=== PATIENT | male | born 1990 | race Caucasian/White ===

== ENCOUNTER 2019-03-04 21:23 | Emergency (ER) | payer OTHER, SELFPAY ==
[2019-03-04 21:25] VITALS: BP 165/81; PULSE 97; RESP 16; TEMP 36.7; O2SAT 100; BMI 31.6
--- NOTE | 2019-03-04 21:59 | ED.VIS.PSYCH ---
History of Present Illness Chief Complaint: Mental Health Informant: Patient, Family Onset: Month(s) - 6 months Context: Gradual Onset Conflict: Family, Work Timing: Continuous Current Severity: Mild Maximum Severity: Moderate Worsened by: Situational factors Relieved by: Nothing Associated Symptoms: Depressed, Change in Eating, Change in sleeping, Guilt, Decreased Concentration. Negative for: Hopelessness, Suicidal Thoughts, Easily distracted, Grandiosity, Flight of Ideas, Increased activity, Pressured Speech, Agitated, Angry, Hostile, Threatening, Confusion, Paranoia, Auditory Hallucinations Specific plan (suicidal thought): Not applicable Narrative: Patient is a 28-year-old male brought to the emergency department by his father. He has been for 4 years. His is expecting. She is 33 weeks. Apparently they have been having problems over the past 6 months. There is a co-worker that has been talking with him. is aware. This has led to a strain in their relationship. He admits to drinking this evening. He has superficial cuts to the volar surface of the left forearm. He has no psychiatric disorder. He has never attempted to harm himself. He is employed as a teacher. He does admit to smoking. Patient does have an appointment to see counselor on Thursday. He was in marriage counseling. Marriage counselor recommended separate counseling at the present time. Apparently they had lived in separate residence for the past week. He will stay with his mother and father this evening. Prior similar symptoms: No Recent Illness/Hospitalization: No - Past Medical History (1) No significant past medical history Status: Acute Past Medical History - Allergies and Home Meds Allergies/Adverse Reactions: Allergies No Known Allergies Allergy (Verified 03/04/19 21:29) Primary Care Physician: Care Physician,No Primary [Primary Care Provider] - Prior records reviewed: No Past Medical History: None Surgical History: no surgical history Lives: Spouse/ Significant Other, With Family Smoking Status: Never smoker Review of Systems General: Denies: Chills, Fever, Sweats Eyes: Denies: Visual changes - bilaterally, Blurred Vision - bilaterally, Diplopia ENT: Denies: Rhinorrhea, Sore throat Cardiovascular: Denies: Chest pain, Palpitations Respiratory: Denies: Dyspnea, Cough, Dyspnea on exertion Gastrointestinal: Denies: Abdominal pain, Nausea, Vomiting, Diarrhea, Melena, Hematochezia Genitourinary: Denies: Dysuria, Hematuria, Frequency Musculoskeletal: Denies: Back pain, Extremity Pain Skin: Denies: Rash, Wounds Neurological: Denies: Headache, Weakness, Numbness Psych: Reports: Depression, Anxiety. Denies: Suicidal thoughts, Suicidal ideations, -, - Hematologic: Denies: Easy bruising, Easy bleeding Physical Exam Vital Signs/Narrative: Vital Signs Temp Pulse Resp BP Pulse Ox 03/04/19 21:25 98.1 F 97 16 165/81 H 100 Inital Vital Signs reviewed: Yes General: Well nourished, Well developed Head: Normocephalic, Atraumatic Eyes: Perrl, EOMI. Negative for: Pale conjunctiva, Scleral icterus ENT: Moist mucous membranes, No rhinorrhea Neck: Supple, Nontender, No lymphadenopathy, No JVD Cardiovascular: Regular rate, Regular rhythm, No murmurs, Normal S1, Normal S2 Respiratory: No distress, CTA bilaterally, Chest nontender Abdomen: Soft, Nontender, Nondistended, Normal bowel sounds Back: Nontender, Normal Inspection Extremities: Nontender, No Edema, - - Superficial linear lacerations.. Negative for: Healed prior injuries Skin: Normal color, No rash Neurological: Alert, Oriented x3, Cranial nerves II-XII grossly intact, Normal Strength, Normal Sensation, Normal Gait Psych: Logical sequential goal directed thoughts, No suicidal or homicidal ideation, Normal Appearance, Depressed. Negative for: Normal Stable Appropriate Affect, Irritable, Euphoric, Labile, Blunted Affect, Flat Affect, Restricted Affect, Pressured Speech, Poverty of Speech, Flight of Ideas, Incoherent thoughts, Suicidal thoughts, Homicidal thoughts, Hallucinations, Delusions, Paranoid Ideation, Poor Insight, Poor Judgement Diagnostic/Tx/Re-eval Restraints applied: No Patient presents with depression in the past 6 years. He was in marriage counseling. He is now undergoing individual counseling. Patient is modified sad person score is 5. Patient is candidate for outpatient therapy. He was administered Zoloft in the emergency department and prescription for Zoloft. He states he cut himself because he felt numb and wanted to feel. ED Disposition - Plan for ED Patient: Disposition: Home or Assisted Living Diagnosis: Depression (emotion), Abrasion, forearm w/o infection Instructions: ED Depression, ED Laceration Small Superf No Sutr Prescriptions: Sertraline HCl [Zoloft] 25 mg PO QHS #30 tab Referrals: Care Physician,No Primary [Primary Care Provider] -
[2019-03-04] MEDS: Sertraline 50 MG Tablet 25 MG PO (22:20)
== END 2019-03-04 22:30 | disposition home or self-care (01) ==
LOC: ED 22:30
PROVIDERS: Emergency Provider Emergency Medicine
DX: F32.9 Major depressive disorder, single episode, unspecified (principal); S50.812A Abrasion of left forearm, initial encounter; W45.8XXA Other foreign body or object entering through skin, initial encounter; Y93.89 Activity, other specified; Y92.89 Other specified places as the place of occurrence of the external cause; Y99.8 Other external cause status
CPT/HCPCS: 99283

== ENCOUNTER → 2020-01-04 | Outpatient (CLI) | payer OTHER, SELFPAY ==
[2020-01-04 09:18] VITALS: BMI 32.9
[2020-01-04 11:59] LABS: Bacteria 0 SEEN /hpf (None Seen); Mucous, Urine 0 SEEN /hpf (<or=2+); Red Blood Cells-Urine 0 SEEN /hpf (0-5); Squamous Epithelial Cells - UA 0 SEEN /hpf (0-5); White Blood Cells 0 SEEN /hpf (0-5)
[2020-01-04 12:02] LABS: Color, Urine Yellow (Yellow); Glucose, Dipstick Normal (Normal); Ketone-Dipstick Negative (Negative); Leukocyte Esterase-Dipstick Negative /ul (Negative); Nitrite-Dipstick Negative (Negative); Occult Blood-Urine Negative /ul (Negative); Protein-Dipstick Negative (Negative); Specific Gravity, Urine 1.005 (1.002-1.030); Urine Bilirubin Dipstick Negative (Negative); Urine Clarity Clear (Clear); Urine Urobilinogen Normal (Normal)
[2020-01-04 12:04] LABS: Hematocrit 47.1 % (40-54); Hemoglobin 15.9 g/dL (13.0-16.5); Mean Corp Hgb Conc 33.8 g/dL (32-36); Mean Corpuscular Volume 85.9 fL (80-94); Mean Platelet Vol. 10.1 fl (6.2-12.0); Platelet Count 217 K/mm3 (150-450); RBC Distribution Width CV 12.6 % (11.6-14.6); RBC Distribution Width SD 39.1 fl (35.1-43.9); Red Blood Count 5.48 M/mm3 (4.6-6.2); White Blood Count 5.8 K/mm3 (4.4-11.0)
[2020-01-04 12:25] LABS: Hemoglobin A1c 5.6 % (4.2-6.3)
[2020-01-04 12:28] LABS: ALB/GLOB Ratio 1.2 RATIO (0.9-2.4); AST(SGOT) 39 U/L (15-37); Alanine Aminotransfer ALT/SGPT 115 U/L (16-61); Alkaline Phosphatase 59 U/L (45-117); Anion Gap 5 (5-15); BUN 23 mg/dL (7-18); BUN/Creat Ratio 16.5 RATIO (10-20); Calcium,Total 8.8 mg/dL (8.5-10.1); Chloride 103 mmol/L (98-107); Cholesterol 187 mg/dL (200); Creatinine, Serum 1.39 mg/dL (0.70-1.30); EST Glomerular Filtration Rate 64 mL/min (>60); Est Glom Filt Rate - Afr Amer 78 mL/min (>60); Globulin 3.3 g/dL (2.2-4.2); Glucose 103 mg/dL (74-106); High Density Lipoprotein 29 mg/dL; PSA,Total - Annual Screen 0.69 ng/mL (0.00-4.00); Protein, Total 7.3 g/dL (6.4-8.2); Sodium Level 138 mmol/L (136-145); Thyroid Stim Hormone (TSH) 1.87 uIU/mL (0.358-3.74); Triglycerides 71 mg/dL; Very Low Density Lipoprotein 14 mg/dL (5-40)
== END | disposition home or self-care (01) ==
PROVIDERS: PCP Internal Medicine; Referring Provider Nurse Practitioner Family; Visit Provider Nurse Practitioner Family
DX: Z00.00 Encounter for general adult medical examination without abnormal findings (principal); Z12.5 Encounter for screening for malignant neoplasm of prostate
CPT/HCPCS: 36415; 80053; 80061; 81001; 83036; 84153; 84443; 85027; G0103

== ENCOUNTER 2020-03-28 17:40 | Emergency (ER) | payer OTHER, SELFPAY ==
[2020-01-04 13:36] VITALS: BMI 31.6
[2020-03-28 17:41] VITALS: BP 118/74; PULSE 112; RESP 18; TEMP 37; O2SAT 95; BMI 31.1
--- NOTE | 2020-03-28 17:56 | CT_ITS ---
STUDY: CT ABDOMEN AND PELVIS WITH CONTRAST REASON FOR EXAM: Male, 29 years old. FEVER/NAUSEA/RLQ AND UMBILICAL PAIN. DIARRHEA RADIATION DOSAGE (If Supplied By Facility): CTDIvol = ( 13.46 ) mGy, DLP = ( 1131.97 ) mGycm TECHNIQUE: Transaxial images were obtained from the dome of the diaphragm to the symphysis pubis with oral contrast. Oral and amp; IV Gastrografin and amp; 75mL Isovue-370 was administered. Sagittal and coronal images were reconstructed. Individualized dose optimization techniques were used for this CT. COMPARISON: None. FINDINGS: Moderate thickening of the mucosa of the wall of the entire ascending and transverse colon as well as entire descending colon and proximal sigmoid colon compatible with diffuse colitis. There is also mild to moderate thickening of the wall of the ileocolic junction. Right lower quadrant subcentimeter lymphadenopathy is present. The appendix is normal in caliber and without abnormal distention or periappendiceal inflammation to suggest acute appendicitis. The small bowel is normal. The stomach is normal. No small bowel obstruction. No free air or free fluid. The visualized lung bases are unremarkable. The visualized portions of the heart are within normal limits. Normal liver. Normal gallbladder and extrahepatic biliary system. Normal spleen. Normal pancreas. Normal bilateral adrenal glands. Normal right kidney. Normal left kidney. Normal abdominal aorta. Normal inferior vena cava. Normal retroperitoneum. Normal urinary bladder. Normal abdominal wall. There are diffuse degenerative changes of the visualized lumbar spine. CT/Abdomen/Pelvis WITH Contrast IMPRESSION: 1. Moderate thickening of the mucosa of the wall of the entire ascending and transverse colon as well as entire descending colon and proximal sigmoid colon compatible with diffuse colitis. There is also mild to moderate thickening of the wall of the ileocolic junction. Right lower quadrant subcentimeter lymphadenopathy is present. 2. Findings can be seen with inflammatory bowel disease. 3. The appendix is normal in caliber and without abnormal distention or periappendiceal inflammation to suggest acute appendicitis. Electronically Signed: Jamey Nance MD at 20:01 EDT , Service support ,
--- NOTE | 2020-03-28 17:57 | ED.DCSUM_ITS ---
History of Present Illness Chief Complaint: Abd Pain Informant: Patient Onset: Yesterday Current Severity: Mild Maximum Severity: Moderate Narrative: Presents with fever, mild cough, abdominal pain, diarrhea. Symptoms started yesterday. Temperature has been up to 102. Last dose of Tylenol was 2 hours prior to arrival. He does report mild cough but no shortness of breath. He has abdominal cramping and diarrhea. He states yesterday he had periumbilical pain it is now moved down to the right lower quadrant. He denies any known exposures to Covid patients. He has not had an appetite and has not eaten today. - Past Medical History (1) Depression Status: Chronic Past Medical History - Allergies and Home Meds Allergies/Adverse Reactions: Allergies No Known Allergies Allergy (Verified 03/28/20 17:44) Primary Care Physician: Gay Irving MD [Primary Care Provider] - Surgical History: no surgical history Lives: Spouse/ Significant Other Smoking Status: Never smoker Review of Systems General: Reports: Fever Eyes: Denies: Visual changes - bilaterally ENT: Denies: Bilateral ear pain Cardiovascular: Denies: Chest pain Respiratory: Reports: Cough. Denies: Dyspnea, Sputum Gastrointestinal: Reports: Abdominal pain, Diarrhea. Denies: Vomiting Genitourinary: Denies: Dysuria Musculoskeletal: Denies: Extremity Pain Skin: Denies: Rash Neurological: Denies: Headache Hematologic: Denies: Easy bruising, Easy bleeding Allergy: Denies: Uticaria Physical Exam Vital Signs/Narrative: Vital Signs Temp Pulse Resp BP Pulse Ox 03/28/20 17:41 98.6 F 112 H 18 118/74 95 Inital Vital Signs reviewed: Yes General: Well nourished, Well developed Head: Normocephalic ENT: Moist mucous membranes Neck: Supple Cardiovascular: Regular rate, Regular rhythm Respiratory: No distress, CTA bilaterally Abdomen: Soft, Tender - Mild to moderate right lower quadrant tenderness., Hypoactive bowel sounds. Negative for: Guarding, Rebound tenderness Skin: Normal color Neurological: Alert, Oriented x3 Psychological: Normal affect Diagnostic/Tx/Re-eval Impressions Abdomen/Pelvis CT 03/28/20 17:56 IMPRESSION: 1. Moderate thickening of the mucosa of the wall of the entire ascending and transverse colon as well as entire descending colon and proximal sigmoid colon compatible with diffuse colitis. There is also mild to moderate thickening of the wall of the ileocolic junction. Right lower quadrant subcentimeter lymphadenopathy is present. 2. Findings can be seen with inflammatory bowel disease. 3. The appendix is normal in caliber and without abnormal distention or periappendiceal inflammation to suggest acute appendicitis. Electronically Signed: Jamey Nance MD at 20:01 EDT , Service support , 03/28/20 17:56 Abdomen/Pelvis WITH Contrast [CT] Stat Laboratory Results 03/28/20 03/28/20 03/28/20 18:03 18:10 18:10 WBC 8.1 RBC 5.40 Hgb 15.8 Hct 50.0 MCV 92.6 MCH 29.3 MCHC 31.6 L RDW Std Deviation 49.1 H RDW Coeff of Aparna 14.3 Plt Count 208 MPV 9.7 Immature Gran % (Auto) 0.200 Neut % (Auto) 84.0 H Lymph % (Auto) 7.7 L [place] % (Auto) 7.9 Eos % (Auto) 0.0 Baso % (Auto) 0.2 Absolute Neuts (auto) 6.8 Absolute Lymphs (auto) 0.62 L Nucleated RBC % 0 Sodium 139 Potassium 3.9 Chloride 105 Carbon Dioxide 29.0 Anion Gap 5 BUN 11 Creatinine 1.56 H Estim Creat Clear Calc 77.38 Est GFR (MDRD) Af Amer 68 Est GFR (MDRD) Non-Af 56 L BUN/Creatinine Ratio 7.1 L Glucose 90 Calcium 9.1 Urine Color Urine Clarity Urine pH Ur Specific [place] Urine Protein Urine Glucose (UA) Urine Ketones Urine Occult Blood Urine Nitrite Urine Bilirubin Urine Urobilinogen Ur Leukocyte Esterase Urine RBC Urine WBC Ur Squamous Epith Cells Urine Bacteria Urine Mucus COVID-19 (TR) Negative 03/28/20 19:40 WBC RBC Hgb Hct MCV MCH MCHC RDW Std Deviation RDW Coeff of Aparna Plt Count MPV Immature Gran % (Auto) Neut % (Auto) Lymph % (Auto) [place] % (Auto) Eos % (Auto) Baso % (Auto) Absolute Neuts (auto) Absolute Lymphs (auto) Nucleated RBC % Sodium Potassium Chloride Carbon Dioxide Anion Gap BUN Creatinine Estim Creat Clear Calc Est GFR (MDRD) Af Amer Est GFR (MDRD) Non-Af BUN/Creatinine Ratio Glucose Calcium Urine Color Jayde Urine Clarity Clear Urine pH 6.0 Ur Specific [place] 1.015 Urine Protein 30 H Urine Glucose (UA) Normal Urine Ketones 5 H Urine Occult Blood 10 H Urine Nitrite Negative Urine Bilirubin 1 H Urine Urobilinogen 1 H Ur Leukocyte Esterase 25 H Urine RBC 0-5 SEEN Urine WBC 0 SEEN Ur Squamous Epith Cells 0 SEEN Urine Bacteria 0 SEEN Urine Mucus 2+ COVID-19 (TR) - Medical Decision Making Patient declined anything for pain or nausea while here. He was given IV fluids. Test results are discussed with patient and at bedside. He does have evidence of diffuse colitis. He believes his father either has ulcerative colitis or Crohn's disease. Patient will be treated with Cipro and Flagyl to cover potential bacterial cause of his colitis. He was advised he would need follow-up with GI or surgery for possible colonoscopy once his flare ends. ED Disposition - Plan for ED Patient: Disposition: Home or Assisted Living Diagnosis: Colitis Instructions: ED Gastroenteritis Bacterial Prescriptions: Ciprofloxacin [Cipro] 500 mg PO BID #14 tab [facility] metroNIDAZOLE [Flagyl] 500 mg PO Q6H #40 tab Transmission Status: Pending to [facility] Referrals: Gay Irving MD [Primary Care Provider] - 1-2 Weeks
[2020-03-28 18:16] VITALS: BP 120/85; PULSE 112; RESP 16; O2SAT 99
[2020-03-28 18:36] LABS: Absolute Lymphocyte Count 0.62 X10^3/uL (0.83-4.51); Absolute Neutrophil Count 6.8 X10^3/uL (2.0-7.7); Basophil# 0.02 X10^3/uL; Basophil% 0.2 % (0-1); Hemoglobin 15.8 g/dL (13.0-16.5); Lymphocyte # 0.62 X10^3/ul (4.0); Lymphocyte % 7.7 % (19-41); Mean Corp Hgb Conc 31.6 g/dL (32-36); Mean Corpuscular Hgb 29.3 pg (27.0-32.0); Mean Corpuscular Volume 92.6 fL (80-94); Mean Platelet Vol. 9.7 fl (6.2-12.0); Monocyte# 0.64 X10^3/uL; Monocyte% 7.9 % (0-10); NRBC Flagged by Analyzer 0 % (0-5); Neutrophil # 6.76 X10^3/uL (2.7-7.7); Platelet Count 208 K/mm3 (150-450); RBC Distribution Width CV 14.3 % (11.6-14.6); RBC Distribution Width SD 49.1 fl (35.1-43.9); White Blood Count 8.1 K/mm3 (4.4-11.0)
[2020-03-28 18:37] LABS: Anion Gap 5 (5-15); BUN 11 mg/dL (7-18); BUN/Creat Ratio 7.1 RATIO (10-20); Calcium,Total 9.1 mg/dL (8.5-10.1); Chloride 105 mmol/L (98-107); Creatinine, Serum 1.56 mg/dL (0.70-1.30); EST Glomerular Filtration Rate 56 mL/min (>60); Est Glom Filt Rate - Afr Amer 68 mL/min (>60); Estimated Creatinine Clearance 77.38 ml/min; Glucose 90 mg/dL (74-106); Potassium 3.9 mmol/L (3.5-5.1); Sodium Level 139 mmol/L (136-145)
[2020-03-28] MEDS: 0.9% Normal Saline 1,000 ML 150 ML IV (19:29)
[2020-03-28 19:59] LABS: Bacteria 0 SEEN /hpf (None Seen); Squamous Epithelial Cells - UA 0 SEEN /hpf (0-5); White Blood Cells 0 SEEN /hpf (0-5)
[2020-03-28 20:00] VITALS: BP 108/55; PULSE 103; RESP 16; O2SAT 100
[2020-03-28 20:00] LABS: Color, Urine Amber (Yellow); Glucose, Dipstick Normal (Normal); Ketone-Dipstick 5 mg/dl (Negative); Leukocyte Esterase-Dipstick 25 /ul (Negative); Nitrite-Dipstick Negative (Negative); Occult Blood-Urine 10 /ul (Negative); Protein-Dipstick 30 mg/dl (Negative); Specific Gravity, Urine 1.015 (1.002-1.030); Urine Clarity Clear (Clear); Urine Urobilinogen 1 mg/dl (Normal)
[2020-03-28 20:05] LABS: Urine Bilirubin Dipstick 1 mg/dL (Negative)
[2020-03-28 20:08] LABS: Probe Check PASS; Specimen Processing Control PASS
[2020-03-28] MEDS: 0.9% Normal Saline 1,000 ML 999 ML IV (20:16)
[2020-03-28 20:20] LABS: Mucous, Urine 2+ /hpf (<or=2+); Red Blood Cells-Urine 0-5 SEEN /hpf (0-5)
[2020-03-28] MEDS: Ciprofloxacin 500 MG Tablet PO (20:34)
[2020-03-28] MEDS: metroNIDAZOLE 500 MG Tablet PO (20:34)
[2020-03-28 20:35] VITALS: BP 108/54; PULSE 103; RESP 16; O2SAT 97
== END 2020-03-28 20:36 | disposition home or self-care (01) ==
PROVIDERS: Emergency Provider Emergency Medicine; PCP Internal Medicine
DX: K52.9 Noninfective gastroenteritis and colitis, unspecified (principal); F32.9 Major depressive disorder, single episode, unspecified; Z79.899 Other long term (current) drug therapy
CPT/HCPCS: 74177; 80048; 81001; 85025; 87635; 96360; 99285; G2023; J7030; Q9967; U0003

== ENCOUNTER → 2020-04-04 | Outpatient (CLI) | payer OTHER, SELFPAY ==
[2020-04-04 08:16] VITALS: BMI 31.1
--- NOTE | 2020-04-04 09:09 | RAD_ITS ---
STUDY: X-RAY - LUMBAR SPINE REASON FOR EXAM: Male, 29 years old. PAIN IN LOWER BACK DOWN INTO RIGHT HIP. NO KNOWN INJURY. TECHNIQUE: 5 view(s) of the lumbar spine were obtained. COMPARISON: None FINDINGS: Normal lumbar lordosis. There is no substantial scoliosis. There is a normal alignment of the vertebrae. Normal vertebral bodies and endplates. Normal disc space heights. The soft tissue structures are unremarkable. RAD/L/S Spine Min 4 Views IMPRESSION: Normal x-ray examination of the lumbar spine. Electronically Signed: Luis Keita MD at 16:59 EDT , Service support ,
[2020-04-04 13:07] LABS: ALB/GLOB Ratio 1.1 RATIO (0.9-2.4); AST(SGOT) 279 U/L (15-37); Alanine Aminotransfer ALT/SGPT 561 U/L (16-61); Alkaline Phosphatase 60 U/L (45-117); Anion Gap 5 (5-15); BUN 15 mg/dL (7-18); BUN/Creat Ratio 9.3 RATIO (10-20); Chloride 102 mmol/L (98-107); Creatinine, Serum 1.61 mg/dL (0.70-1.30); EST Glomerular Filtration Rate 54 mL/min (>60); Est Glom Filt Rate - Afr Amer 66 mL/min (>60); Globulin 3.8 g/dL (2.2-4.2); Glucose 100 mg/dL (74-106); Potassium 4.2 mmol/L (3.5-5.1); Protein, Total 7.8 g/dL (6.4-8.2); Sodium Level 138 mmol/L (136-145); T4 Free Direct 1.01 ng/dL (0.76-1.46); Thyroid Stim Hormone (TSH) 2.79 uIU/mL (0.358-3.74)
== END | disposition home or self-care (01) ==
PROVIDERS: PCP Internal Medicine; Referring Provider Internal Medicine; Visit Provider Internal Medicine
DX: K52.9 Noninfective gastroenteritis and colitis, unspecified (principal); G89.29 Other chronic pain; M54.9 Dorsalgia, unspecified; R74.8 Abnormal levels of other serum enzymes; R19.7 Diarrhea, unspecified
CPT/HCPCS: 36415; 72110; 80053; 82274; 84439; 84443

== ENCOUNTER → 2020-04-09 | Outpatient (CLI) | payer OTHER, SELFPAY ==
[2020-04-04 08:16] VITALS: BMI 31.1
[2020-04-10 09:23] LABS: Hepatitis B Surface Antigen Non-Reactive (Nonreactive); Hepatitis C Antibody Non-Reactive (Nonreactive)
== END | disposition home or self-care (01) ==
LOC: BIMLAB 15:48
PROVIDERS: PCP Internal Medicine; Referring Provider Internal Medicine; Visit Provider Internal Medicine
DX: K52.9 Noninfective gastroenteritis and colitis, unspecified (principal); R74.8 Abnormal levels of other serum enzymes
CPT/HCPCS: 36415; 86803; 87340

== ENCOUNTER → 2020-05-08 | Outpatient (CLI) | payer OTHER, SELFPAY ==
[2020-05-07 15:46] VITALS: BMI 31.1
[2020-05-08 16:57] LABS: GGTP 46 U/L (15-85)
[2020-05-08 17:16] LABS: ALB/GLOB Ratio 1.3 RATIO (0.9-2.4); AST(SGOT) 32 U/L (15-37); Alanine Aminotransfer ALT/SGPT 53 U/L (16-61); Albumin, Serum 4.3 g/dL (3.2-5.0); Alkaline Phosphatase 55 U/L (45-117); Anion Gap 7 (5-15); BUN 16 mg/dL (7-18); BUN/Creat Ratio 11.2 RATIO (10-20); Calcium,Total 9.1 mg/dL (8.5-10.1); Chloride 104 mmol/L (98-107); Creatinine, Serum 1.43 mg/dL (0.70-1.30); EST Glomerular Filtration Rate 62 mL/min (>60); Est Glom Filt Rate - Afr Amer 75 mL/min (>60); Globulin 3.4 g/dL (2.2-4.2); Glucose 80 mg/dL (74-106); Potassium 3.8 mmol/L (3.5-5.1); Protein, Total 7.7 g/dL (6.4-8.2); Sodium Level 140 mmol/L (136-145)
== END | disposition home or self-care (01) ==
LOC: BIMLAB 15:51
PROVIDERS: Nurse Practitioner Family; PCP Internal Medicine; Referring Provider Internal Medicine; Visit Provider Internal Medicine
DX: K52.9 Noninfective gastroenteritis and colitis, unspecified (principal); R79.89 Other specified abnormal findings of blood chemistry
CPT/HCPCS: 36415; 80053; 82977

== ENCOUNTER → 2020-07-30 | Outpatient (CLI) | payer OTHER, SELFPAY ==
[2020-07-30 14:59] VITALS: BMI 33.5
[2020-07-30 16:55] LABS: Absolute Lymphocyte Count 1.67 X10^3/uL (0.83-4.51); Absolute Neutrophil Count 5.4 X10^3/uL (2.0-7.7); Basophil# 0.03 X10^3/uL; Basophil% 0.4 % (0-1); Eosinophil# 0.26 X10^3/uL; Eosinophils% 3.3 % (0-5); Hemoglobin 15.2 g/dL (13.0-16.5); Lymphocyte # 1.67 X10^3/ul (4.0); Mean Corpuscular Hgb 29.5 pg (27.0-32.0); Mean Corpuscular Volume 89.1 fL (80-94); Mean Platelet Vol. 9.6 fl (6.2-12.0); Monocyte# 0.61 X10^3/uL; Monocyte% 7.7 % (0-10); NRBC Flagged by Analyzer 0 % (0-5); Neutrophil # 5.37 X10^3/uL (2.7-7.7); Neutrophil % 67.3 % (47-70); Platelet Count 227 K/mm3 (150-450); RBC Distribution Width CV 13.4 % (11.6-14.6); RBC Distribution Width SD 43.8 fl (35.1-43.9); Red Blood Count 5.16 M/mm3 (4.6-6.2)
[2020-07-30 17:25] LABS: ALB/GLOB Ratio 1.1 RATIO (0.9-2.4); AST(SGOT) 30 U/L (15-37); Alanine Aminotransfer ALT/SGPT 68 U/L (16-61); Albumin, Serum 3.9 g/dL (3.2-5.0); Alkaline Phosphatase 49 U/L (45-117); Anion Gap 5 (5-15); BUN 17 mg/dL (7-18); BUN/Creat Ratio 12.7 RATIO (10-20); Chloride 106 mmol/L (98-107); Cholesterol 188 mg/dL (200); Creatinine, Serum 1.34 mg/dL (0.70-1.30); EST Glomerular Filtration Rate 67 mL/min (>60); Est Glom Filt Rate - Afr Amer 81 mL/min (>60); Globulin 3.5 g/dL (2.2-4.2); Glucose 79 mg/dL (74-106); High Density Lipoprotein 33 mg/dL; Protein, Total 7.4 g/dL (6.4-8.2); Sodium Level 143 mmol/L (136-145); Triglycerides 203 mg/dL; Very Low Density Lipoprotein 41 mg/dL (5-40)
[2020-07-31 07:47] LABS: SARS-COV-2 TOTAL ABS Nonreactive (Nonreactive)
== END | disposition home or self-care (01) ==
LOC: BIMLAB 15:33
PROVIDERS: PCP Internal Medicine; Visit Provider Nurse Practitioner Family
DX: Z00.00 Encounter for general adult medical examination without abnormal findings (principal); Z20.828 Contact with and (suspected) exposure to other viral communicable diseases
CPT/HCPCS: 36415; 80053; 80061; 84443; 85025; 86769

== ENCOUNTER → 2020-12-28 15:20 | Outpatient (CLI) | payer OTHER, SELFPAY ==
[2020-12-28 15:22] LABS: Bacteria 0 SEEN /hpf (None Seen); Mucous, Urine 0 SEEN /hpf (<or=2+); Red Blood Cells-Urine 0 SEEN /hpf (0-5); Squamous Epithelial Cells - UA 0 SEEN /hpf (0-5); White Blood Cells 0 SEEN /hpf (0-5)
[2020-12-28 16:35] LABS: Color, Urine Yellow (Yellow); Glucose, Dipstick Normal (Normal); Ketone-Dipstick Negative (Negative); Leukocyte Esterase-Dipstick Negative /ul (Negative); Nitrite-Dipstick Negative (Negative); Occult Blood-Urine Negative /ul (Negative); Protein-Dipstick Negative (Negative); Urine Bilirubin Dipstick Negative (Negative); Urine Clarity Clear (Clear); Urine Urobilinogen Normal (Normal); Urine pH 6.5 (5.0 - 8.0)
[2020-12-28 16:44] LABS: Absolute Lymphocyte Count 1.69 X10^3/uL (0.83-4.51); Absolute Neutrophil Count 4.8 X10^3/uL (2.0-7.7); Basophil# 0.02 X10^3/uL; Basophil% 0.3 % (0-1); Eosinophil# 0.26 X10^3/uL; Eosinophils% 3.5 % (0-5); Hematocrit 47.5 % (40-54); Hemoglobin 15.7 g/dL (13.0-16.5); Lymphocyte # 1.69 X10^3/ul (4.0); Mean Corp Hgb Conc 33.1 g/dL (32-36); Mean Corpuscular Hgb 28.8 pg (27.0-32.0); Monocyte# 0.55 X10^3/uL; Monocyte% 7.5 % (0-10); NRBC Flagged by Analyzer 0 % (0-5); Neutrophil # 4.81 X10^3/uL (2.7-7.7); Neutrophil % 65.4 % (47-70); Platelet Count 248 K/mm3 (150-450); RBC Distribution Width CV 13.3 % (11.6-14.6); RBC Distribution Width SD 42.4 fl (35.1-43.9); Red Blood Count 5.46 M/mm3 (4.6-6.2); White Blood Count 7.4 K/mm3 (4.4-11.0)
[2020-12-28 16:48] LABS: Vitamin D,25 Hydroxy 18.7 ng/mL
[2020-12-28 16:56] LABS: ALB/GLOB Ratio 1.3 RATIO (0.9-2.4); AST(SGOT) 40 U/L (15-37); Alanine Aminotransfer ALT/SGPT 103 U/L (16-61); Albumin, Serum 4.3 g/dL (3.2-5.0); Alkaline Phosphatase 60 U/L (45-117); Anion Gap 6 (5-15); BUN 17 mg/dL (7-18); BUN/Creat Ratio 11.5 RATIO (10-20); Calcium,Total 9.4 mg/dL (8.5-10.1); Chloride 101 mmol/L (98-107); Creatinine, Serum 1.48 mg/dL (0.70-1.30); EST Glomerular Filtration Rate 60 mL/min (>60); Est Glom Filt Rate - Afr Amer 72 mL/min (>60); Globulin 3.4 g/dL (2.2-4.2); Glucose 93 mg/dL (74-106); Potassium 3.9 mmol/L (3.5-5.1); Protein, Total 7.7 g/dL (6.4-8.2); Sodium Level 139 mmol/L (136-145); Thyroid Stim Hormone (TSH) 1.98 uIU/mL (0.358-3.74)
== END ==
PROVIDERS: PCP Internal Medicine; Referring Provider Nurse Practitioner Family; Visit Provider Nurse Practitioner Family
DX: F32.9 Major depressive disorder, single episode, unspecified (principal); F98.8 Other specified behavioral and emotional disorders with onset usually occurring in childhood and adolescence; R79.89 Other specified abnormal findings of blood chemistry
CPT/HCPCS: 36415; 80053; 81001; 82306; 84443; 85025

== ENCOUNTER → 2021-01-07 08:50 | Outpatient (CLI) | payer OTHER, SELFPAY ==
--- NOTE | 2021-01-07 09:01 | US_ITS ---
STUDY: ABDOMINAL ULTRASOUND - RIGHT UPPER QUADRANT REASON FOR VISIT: Male, 30 years old elevated lfts TECHNIQUE: Ultrasound evaluation of the right upper quadrant was performed with real-time and static cortez-scale imaging. TECHNICAL QUALITY: Adequate. COMPARISON: None. FINDINGS: Visualized liver parenchyma shows homogeneous echotexture. There is no gallbladder stone or polyp. No gallbladder wall thickening or pericholecystic fluid is seen. Sonographic Schmidt''s sign has been reported negative. Common bile duct measures the 0.3 cm in diameter. The pancreas is obscured by the overlying bowel gas. Visualized portal vein and right kidney are unremarkable. There is no free fluid in the Gilliam''s pouch. US/Liver IMPRESSION: Pancreas not well-seen due to overlying bowel gas. Otherwise, unremarkable right upper quadrant ultrasound. Electronically Signed: Manuel Raymond MD at 1:24 EDT Tel , Service support ,
== END ==
PROVIDERS: PCP Internal Medicine; Referring Provider Nurse Practitioner Family; Visit Provider Nurse Practitioner Family
DX: R79.89 Other specified abnormal findings of blood chemistry (principal)
CPT/HCPCS: 76705

== ENCOUNTER → 2021-08-14 08:53 | Outpatient (CLI) | payer OTHER, SELFPAY ==
[2021-08-14 12:19] LABS: Erythrocyte Sedimentation Rate 6 mm/hr (0-20)
[2021-08-14 12:23] LABS: Absolute Lymphocyte Count 1.48 X10^3/uL (0.83-4.51); Absolute Neutrophil Count 3.8 X10^3/uL (2.0-7.7); Basophil# 0.02 X10^3/uL; Basophil% 0.3 % (0-1); Eosinophil# 0.24 X10^3/uL; Eosinophils% 3.9 % (0-5); Hematocrit 50.3 % (40-54); Hemoglobin 16.5 g/dL (13.0-16.5); Lymphocyte # 1.48 X10^3/ul (0.83-4.51); Lymphocyte % 24.2 % (19-41); Mean Corp Hgb Conc 32.8 g/dL (32-36); Mean Corpuscular Hgb 30.1 pg (27.0-32.0); Mean Corpuscular Volume 91.8 fL (80-94); Mean Platelet Vol. 10.6 fl (6.2-12.0); Monocyte# 0.61 X10^3/uL; NRBC Flagged by Analyzer 0 % (0-5); Neutrophil # 3.76 X10^3/uL (2.7-7.7); Neutrophil % 61.4 % (47-70); Platelet Count 318 K/mm3 (150-450); RBC Distribution Width CV 13.8 % (11.6-14.6); Red Blood Count 5.48 M/mm3 (4.6-6.2); White Blood Count 6.1 K/mm3 (4.4-11.0)
[2021-08-14 13:01] LABS: ALB/GLOB Ratio 1.1 RATIO (0.9-2.4); AST(SGOT) 89 U/L (15-37); Alanine Aminotransfer ALT/SGPT 210 U/L (16-61); Alkaline Phosphatase 49 U/L (45-117); Anion Gap 6 (5-15); BUN 17 mg/dL (7-18); BUN/Creat Ratio 13.5 RATIO (10-20); CRP < 2.90 mg/L (0.0-3.0); Calcium,Total 9.3 mg/dL (8.5-10.1); Chloride 104 mmol/L (98-107); Cholesterol 254 mg/dL (200); Creatinine, Serum 1.26 mg/dL (0.70-1.30); EST Glomerular Filtration Rate 71 mL/min (>60); Est Glom Filt Rate - Afr Amer 86 mL/min (>60); Globulin 3.6 g/dL (2.2-4.2); Glucose 102 mg/dL (74-106); High Density Lipoprotein 20 mg/dL; Potassium 4.3 mmol/L (3.5-5.1); Protein, Total 7.6 g/dL (6.4-8.2); Sodium Level 138 mmol/L (136-145); Thyroid Stim Hormone (TSH) 1.58 uIU/mL (0.358-3.74); Triglycerides 201 mg/dL; Very Low Density Lipoprotein 40 mg/dL (5-40)
[2021-08-15 13:00] LABS: ANTINUCLEAR ANTIBODIES DIRECT Negative (Negative)
== END ==
PROVIDERS: PCP Internal Medicine; Referring Provider Nurse Practitioner Family; Visit Provider Nurse Practitioner Family
DX: Z00.00 Encounter for general adult medical examination without abnormal findings (principal); R79.89 Other specified abnormal findings of blood chemistry; R53.83 Other fatigue
CPT/HCPCS: 36415; 80053; 80061; 84443; 85025; 85652; 86038; 86140; 86225; 86235

== ENCOUNTER → 2021-08-27 10:13 | Outpatient (CLI) | payer OTHER, SELFPAY | PROVIDERS: PCP Internal Medicine; Visit Provider Nurse Practitioner Family | DX: G47.10 Hypersomnia, unspecified (principal) | CPT/HCPCS: 95806 ==

== ENCOUNTER → 2021-09-05 16:07 | Outpatient (CLI) | payer OTHER, SELFPAY ==
[2021-09-05 16:49] LABS: Hematocrit 45.8 % (40-54); Hemoglobin 15.4 g/dL (13.0-16.5); Mean Corp Hgb Conc 33.6 g/dL (32-36); Mean Corpuscular Hgb 28.9 pg (27.0-32.0); Mean Corpuscular Volume 86.1 fL (80-94); Mean Platelet Vol. 9.8 fl (6.2-12.0); Platelet Count 285 K/mm3 (150-450); RBC Distribution Width CV 12.5 % (11.6-14.6); RBC Distribution Width SD 39.3 fl (35.1-43.9); Red Blood Count 5.32 M/mm3 (4.6-6.2); White Blood Count 8.3 K/mm3 (4.4-11.0)
[2021-09-05 17:37] LABS: ALB/GLOB Ratio 1.1 RATIO (0.9-2.4); AST(SGOT) 33 U/L (15-37); Alanine Aminotransfer ALT/SGPT 59 U/L (16-61); Albumin, Serum 3.9 g/dL (3.2-5.0); Alkaline Phosphatase 73 U/L (45-117); Anion Gap 7 (5-15); BUN 23 mg/dL (7-18); Calcium,Total 8.9 mg/dL (8.5-10.1); Chloride 104 mmol/L (98-107); Creatinine, Serum 1.35 mg/dL (0.70-1.30); EST Glomerular Filtration Rate 66 mL/min (>60); Est Glom Filt Rate - Afr Amer 80 mL/min (>60); Globulin 3.5 g/dL (2.2-4.2); Glucose 79 mg/dL (74-106); Potassium 3.8 mmol/L (3.5-5.1); Protein, Total 7.4 g/dL (6.4-8.2); Sodium Level 140 mmol/L (136-145)
== END ==
PROVIDERS: PCP Internal Medicine; Referring Provider Nurse Practitioner Family; Visit Provider Nurse Practitioner Family
DX: K52.9 Noninfective gastroenteritis and colitis, unspecified (principal)
CPT/HCPCS: 36415; 80053; 85027

== ENCOUNTER → 2021-10-02 07:17 | Outpatient (CLI) | payer OTHER, SELFPAY ==
--- NOTE | 2021-10-02 07:19 | US_ITS ---
STUDY: ABDOMINAL ULTRASOUND - RIGHT UPPER QUADRANT REASON FOR VISIT: Male, 31 years old elevated LFT TECHNIQUE: Ultrasound evaluation of the right upper quadrant was performed with real-time and static cortez-scale imaging. TECHNICAL QUALITY: Adequate. COMPARISON: Comparison is made with prior sonogram of the right upper quadrant dated 01/07/2021. FINDINGS: Liver: The liver measures 17.1 cm. There is normal echogenicity of the liver. The bile ducts are within normal limits. There is hepatic color flow. The direction of portal flow is hepatopetal. There is no demonstrated mass lesion. Gallbladder: Normal distended gallbladder. The gallbladder wall measures 2.0 mm. There is a negative sonographic Schmidt''s sign. There is no pericholecystic fluid. There are no gallstones. Common Bile Duct (C.B.D.): The common bile duct measures 3 mm. Pancreas: There is nonvisualization of the pancreas due to overlying bowel gas. Right Kidney: Normal size of the right kidney. The right kidney measures 12.1 cm x 5.7 cm x 5 cm. Normal renal cortex. The right cortex measures 1.8 cm. There is no demonstrated renal mass or cyst. There is no right hydronephrosis. IMPRESSION: Normal right upper quadrant ultrasound examination. Electronically Signed: Renan Warner MD at 9:23 EST , Service support , STUDY: ABDOMINAL ULTRASOUND - ELASTOGRAPHY REASON FOR VISIT: Male, 31 years old. Elevated liver function tests. TECHNIQUE: Liver stiffness measurements were obtained on a [employer] 85 ultrasound machine using a CA 1-7 probe following the SRU guidelines. 3 measurements were obtained using a 2-D-SWE method. The IQR/M was 11% suggesting a quality data set. TECHNICAL QUALITY: Adequate. COMPARISON: Comparison is made with prior ultrasound the right upper quadrant done earlier today. FINDINGS: Liver: There is no demonstrated mass lesion. Median liver stiffness measured 10 kPa. US/Abdomen Limited IMPRESSION: Liver stiffness measures 10 kPa compatible with F3 Metavir score. Electronically Signed: Renan Warner MD at 9:24 EST , Service support ,
== END ==
PROVIDERS: PCP Internal Medicine; Referring Provider Internal Medicine Gastroenterology; Visit Provider Internal Medicine Gastroenterology
DX: R19.7 Diarrhea, unspecified (principal); R79.89 Other specified abnormal findings of blood chemistry
CPT/HCPCS: 76705; 76981

== ENCOUNTER 2021-10-14 15:15 | Outpatient (CLI) | payer OTHER, SELFPAY ==
[2021-10-14 17:23] LABS: CPK Total, Creatine Kinase 202 U/L (39-308); CRP < 2.90 mg/L (0.0-3.0); LDH 174 U/L (87-241)
[2021-10-14 17:44] LABS: Erythrocyte Sedimentation Rate 6 mm/hr (0-20)
[2021-10-16 15:08] LABS: Anti-Centromere B Ab <0.2 AI (0.0-0.9); Anti-Chromatin <0.2 AI (0.0-0.9); Anti-Jo <0.2 AI (0.0-0.9); Anti-Scleroderma-70 AB <0.2 AI (0.0-0.9); RNP Ab <0.2 AI (0.0-0.9); SJOGREN'S Anti-SS-A test < 0.2 AI (0.0-0.9); SJOGREN'S Anti-SS-B test < 0.2 AI (0.0-0.9); Smith Ab <0.2 AI (0.0-0.9)
[2021-10-16 15:44] LABS: Anti-Mitochondrial AB <20.0 Units (0.0-20.0); Anti-dsDNA Ab 4 IU/mL (0-9)
[2021-10-19 12:07] LABS: Angiotensin Convert Enzyme 44 U/L (14-82); Ceruloplasmin 22.7 mg/dL (16.0-31.0); Cytoplasmic Ab (C-ANCA) <1:20 titer (Neg:<1:20); Endomysial Antibody IgA Negative (Negative); Immunoglobulin A 64 mg/dL (90-386); Immunoglobulin E 84 IU/mL (6-495); Immunoglobulin G 933 mg/dL (603-1613)
[2021-10-19 13:35] LABS: Anti-Smooth Muscle ABS 7 Units (0-19); Copper, Serum or Plasma 105 ug/dL (63-121); Immunoglobulin M 64 mg/dL (20-172); Perinuclear Ab (P-ANCA) <1:20 titer (Neg:<1:20); t-Transglutaminase IgA <2 U/mL (0-3)
== END 2021-10-14 23:59 | disposition short-term general hospital (02) ==
LOC: BIMLAB 15:16
PROVIDERS: PCP Internal Medicine; Referring Provider Internal Medicine Gastroenterology; Visit Provider Internal Medicine Gastroenterology
DX: R94.5 Abnormal results of liver function studies (principal); R79.89 Other specified abnormal findings of blood chemistry; R19.7 Diarrhea, unspecified
CPT/HCPCS: 82164; 82390; 82525; 82550; 82784; 82785; 83516; 83615; 85652; 86140; 86225; 86235; 86255; 86256; 87493

== ENCOUNTER 2022-03-31 09:34 | Emergency (ER) | payer OTHER, SELFPAY ==
[2022-03-31 09:37] VITALS: BP 162/90; PULSE 96; RESP 17; TEMP 36.2; O2SAT 98; BMI 31.1
--- NOTE | 2022-03-31 10:15 | EDS_ITS ---
HPI History of Present Illness Chief Complaint: Laceration Informant: patient Narrative Narrative: 31-year-old male presenting to the emergency room with a right index finger laceration. Patient was using a chain saw when the saw lacerated his right index finger. He notes his tetanus is up-to-date. He is able to hold his finger in extension. He notes mild to moderate pain. Tetanus Immunization: <5 years PFSH PFS Medical History Acute gastroenteritis Back pain Diarrhea Elevated LFTs Encounter for preventative adult health care examination SIOBHAN (obstructive sleep apnea) Tinea cruris Home Medications meloxicam 15 mg tablet (Mobic) 15 mg PO DAILY PRN pain #30 tabs 12/28/20 [Rx Last Taken Unknown] ergocalciferol (vitamin D2) 1,250 mcg (50,000 unit) capsule 50,000 unit PO QWEEK #8 caps 01/01/21 [Rx Last Taken Unknown] miconazole nitrate 2 % topical powder (Zeasorb AF) 1 applic topical BID #71 grams 09/04/21 [Rx Last Taken Unknown] ondansetron 4 mg disintegrating tablet 4 mg PO Q8H PRN nausea and vomiting #30 tabs 09/04/21 [Rx Last Taken Unknown] vitamin E mixed 400 unit tablet 800 unit PO QDAY #60 tabs 10/25/21 [Rx Last Taken Unknown] bupropion HCl 150 mg tablet,12 hr sustained-release (Wellbutrin SR) 150 mg PO BID #180 ea 10/30/21 [Rx Last Taken Unknown] ursodiol 300 mg capsule 300 mg PO BID #180 caps 12/30/21 [Rx Last Taken Unknown] clotrimazole-betamethasone 1 %-0.05 % topical cream 1 applic topical BID 4 weeks #45 grams 01/08/22 [Rx Last Taken Unknown] naftifine 2 % topical cream 1 applic topical DAILY 2 weeks #60 grams 01/08/22 [Rx Last Taken Unknown] cephalexin 500 mg capsule 500 mg PO Q6H 7 days #28 caps 03/31/22 [Rx Last Taken Unknown] Allergy/AdvReac Type Severity Reaction Status Date / Time No Known Allergies Allergy Verified 03/31/22 09:35 Family History Father Hypertension Surgical History History of shoulder surgery Social History Smoking Status: Never smoker alcohol intake: current alcohol intake frequency: holidays/special occasions only Alcohol type: beer substance use type: does not use what type of physical activity do you participate in: weight training frequency: daily ROS ROS ED Constitutional Constitutional ED: Denies chills or weight loss Eyes Eyes: Denies change in vision or diplopia ENT ENT ED: Denies ear pain, rhinorrhea or sore throat Cardiovascular Cardiovascular: Denies chest pain, orthopnea, palpitations or racing heartbeat Respiratory/Chest Respiratory/Chest: Denies cough, dyspnea or orthopnea Gastrointestinal Gastrointestinal: Denies abdominal pain, diarrhea, nausea or vomiting Genitourinary Genitourinary ED: Denies dysuria, hematuria or urinary frequency Musculoskeletal Musculoskeletal: Denies arthralgias or myalgias Integumentary Reports other Details: See HPI ; Denies abscess or rash Neurologic Neurologic: Denies headache(s) or weakness Psychiatric Psychiatric: Denies anxiety, depression, suicidal ideation or suicidal thoughts Endocrine Endocrinology: Denies polydipsia, polyphagia or polyuria Allergic/Immunologic Allergic/Immunologic ED: Denies mouth swelling, tongue swelling or urticaria EXAM Physical Exam Const Vital Signs: 03/31/22 09:37 Temperature 97.1 F L Temperature Source Temporal Pulse Rate 96 Respiratory Rate 17 Blood Pressure 162/90 H Blood Pressure Mean 114 Pulse Ox 98 Oxygen Delivery Method Room Air Positive well nourished and well developed General Appearance ED: well developed HEENT Reports normocephalic, head/scalp atraumatic and moist mucous membranes Eyes PERRL and EOMs intact bilaterally Neck no lymphadenopathy, supple and no JVD Resp normal respiratory effort and clear to auscultation bilaterally Cardio regular rate, regular rhythm and no murmurs GI normal to inspection, nondistended, normoactive bowel sounds and non-tender Palpation: soft Back/Spine no CVA tenderness and normal ROM Extremity Extremity Narrative: Patient is able to hold his finger in extension with resistance. He has normal flexion of the finger. Neurovascular he appears intact. There is a proximately 3 cm long laceration along the dorsum of the index finger. This does cross over the PIP joint. In the PIP joint I can visualize approximate 50% extensor tendon laceration with exposure of the joint. Mild venous bleeding. General Extremety ED: Negative for edema General Extremity: Negative for edema Neuro oriented x3 and CN's II-XII intact bilaterally Sensorium / Orientation: alert Motor Exam: strength 5/5 throughout Psych mental status grossly normal Mood & Affect: Negative for depressed or tearful Skin no rashes or lesions noted and no wounds MDM MDM MDM Narrative Medical decision making narrative: Raymond Deluna interpretation of the plain films of the right index finger is soft tissue laceration with possible foreign bodies. The wound at and explored. I did find a few pieces of wood that I was able to remove. I irrigated the wound with approximately 1 L of sterile saline. Wound was explored in a bloodless field. It was closed using 4-0 Ethilon sutures. It was then dressed. Patient will need to follow-up with hand surgery and I am going to place him on Keflex. Work restrictions will be given. He notes understanding of plan Radiography Diagnostic Testing: Clinical Impression(s) from Imaging Studies Finger X-Ray 03/31/22 10:19 IMPRESSION: Soft tissue laceration with the findings suggest a small radiopaque foreign bodies in the soft tissues overlying the radial aspect of the middle phalanx of the index finger. Electronically Signed: Renan Warner MD at 10:36 EDT , Discharge Plan Triage Chief Complaint: Laceration ED Provider: Luis M Edmonds Dx/Rx/DC Orders Clinical Impression: Extensor tendon laceration of right hand with open wound, Finger laceration Instructions: ED Tendon Laceration Prescriptions: New cephalexin 500 mg capsule 500 mg PO Q6H 7 Days Qty: 28 0RF No Action meloxicam [Mobic] 15 mg tablet 15 mg PO DAILY PRN (Reason: pain) Qty: 30 1RF Zeasorb AF 2 % powder 1 applic topical BID Qty: 71 1RF ondansetron 4 mg tablet,disintegrating 4 mg PO Q8H PRN (Reason: nausea and vomiting) Qty: 30 1RF vitamin E mixed 400 unit tablet 800 unit PO QDAY Qty: 60 3RF ergocalciferol (vitamin D2) 1,250 mcg (50,000 unit) capsule 50,000 unit PO QWEEK Qty: 8 0RF bupropion HCl [Wellbutrin SR] 150 mg tablet sustained-release 12 hr 150 mg PO BID Qty: 180 2RF Rx Instructions: start daily for the first 2 weeks then increase to twice daily ursodiol 300 mg capsule 300 mg PO BID Qty: 180 3RF naftifine 2 % cream 1 applic topical DAILY 14 Days Qty: 60 3RF clotrimazole-betamethasone 1-0.05 % cream 1 applic topical BID 28 Days Qty: 45 3RF Rx Instructions: Do not apply on genitals or face Primary Care Provider: Gay Irving Referrals: Gay Irving MD [Primary Care Provider] - Activity Restrictions/Additional Instructions: Please call [facility] at [phone] to arrange outpatient follow-up with hand surgery. When you call them you will need to tell them that you have a extensor tendon laceration of your finger. Disposition Disposition: Home, Self Care
--- NOTE | 2022-03-31 10:19 | RAD_ITS ---
STUDY: X-RAY - RIGHT HAND, ATTENTION INDEX FINGER REASON FOR EXAM: Male, 31 years old. Trauma TECHNIQUE: 3 view(s) of the finger were obtained. COMPARISON: None. FINDINGS: Normal metacarpal head. Normal metacarpophalangeal joint. Normal proximal phalanx. Normal middle phalanx. Normal distal phalanx. Normal proximal interphalangeal joint. Normal distal interphalangeal joint. Soft tissue laceration and possible small radiopaque foreign bodies in the soft tissues overlying the radial aspect of the middle phalanx of the index finger. RAD/Finger(s) Min 2 Views IMPRESSION: Soft tissue laceration with the findings suggest a small radiopaque foreign bodies in the soft tissues overlying the radial aspect of the middle phalanx of the index finger. Electronically Signed: Renan Warner MD at 10:36 EDT ,
[2022-03-31] MEDS: Lidocaine 1% (20 ml mdv) 20 ML Vial INFILT (10:32)
[2022-03-31] MEDS: Lidocaine 1% /Epi 1:100 (20ml) 20 ML Vial INFILT (10:51)
== END 2022-03-31 11:27 | disposition home or self-care (01) ==
PROVIDERS: Emergency Provider Emergency Medicine; PCP Internal Medicine; Visit Provider Emergency Medicine
DX: S61.220A Laceration with foreign body of right index finger without damage to nail, initial encounter (principal); S66.320A Laceration of extensor muscle, fascia and tendon of right index finger at wrist and hand level, initial encounter; W29.3XXA Contact with powered garden and outdoor hand tools and machinery, initial encounter; Y99.0 Civilian activity done for income or pay; G47.33 Obstructive sleep apnea (adult) (pediatric); Z79.1 Long term (current) use of non-steroidal anti-inflammatories (NSAID); Z79.899 Other long term (current) drug therapy
CPT/HCPCS: 12002; 73140; 99283

== ENCOUNTER → 2022-04-01 | Outpatient (CLI) | payer OTHER, SELFPAY ==
[2022-04-01 20:30] LABS: Absolute Neutrophil Count 7.1 X10^3/uL (2.0-7.7); Basophil# 0.03 X10^3/uL; Basophil% 0.3 % (0-1); Eosinophil# 0.06 X10^3/uL; Eosinophils% 0.6 % (0-5); Hematocrit 49.3 % (40-54); Hemoglobin 16.4 g/dL (13.0-16.5); Lymphocyte % 15.1 % (19-41); Mean Corp Hgb Conc 33.3 g/dL (32-36); Mean Corpuscular Hgb 29.4 pg (27.0-32.0); Mean Corpuscular Volume 88.5 fL (80-94); Mean Platelet Vol. 9.9 fl (6.2-12.0); Monocyte# 0.62 X10^3/uL; Monocyte% 6.7 % (0-10); NRBC Flagged by Analyzer 0 % (0-5); Neutrophil # 7.11 X10^3/uL (2.7-7.7); Neutrophil % 76.9 % (47-70); Platelet Count 250 K/mm3 (150-450); RBC Distribution Width SD 42.1 fl (35.1-43.9); Red Blood Count 5.57 M/mm3 (4.6-6.2); White Blood Count 9.3 K/mm3 (4.4-11.0)
[2022-04-01 20:37] LABS: International Normalized Ratio 1.2; Partial Thromboplast Time 30.1 Seconds (24.1-36.2); Prothrombin Time (Protime)PT. 14.4 SECONDS (11.7-14.9)
[2022-04-01 20:45] LABS: AST(SGOT) 24 U/L (15-37); Alanine Aminotransfer ALT/SGPT 36 U/L (16-61); Albumin, Serum 4.3 g/dL (3.2-5.0); Alkaline Phosphatase 81 U/L (45-117); Bilirubin, Direct 0.32 mg/dL (0.00-0.30); Globulin 3.5 g/dL (2.2-4.2); Protein, Total 7.8 g/dL (6.4-8.2)
== END | disposition home or self-care (01) ==
LOC: LAB 20:07
PROVIDERS: PCP Internal Medicine; Visit Provider Orthopaedic Surgery Hand Surgery
DX: S66.320A Laceration of extensor muscle, fascia and tendon of right index finger at wrist and hand level, initial encounter (principal); K76.9 Liver disease, unspecified
CPT/HCPCS: 36415; 80076; 85025; 85610; 85730

== ENCOUNTER → 2022-04-03 | Outpatient (CLI) | payer OTHER, SELFPAY ==
--- NOTE | 2022-04-03 11:07 | US_ITS ---
STUDY: ABDOMINAL ULTRASOUND - RIGHT UPPER QUADRANT REASON FOR VISIT: Male, 31 years old SOTELO TECHNIQUE: Ultrasound evaluation of the right upper quadrant was performed with real-time and static cortez-scale imaging. TECHNICAL QUALITY: Adequate. COMPARISON: Comparison is made with prior study 10/02/2021. FINDINGS: Liver: The liver measures 16.4 cm. There is increased echogenicity consistent with mild degree of fatty infiltration. The bile ducts are within normal limits. There is hepatic color flow. The direction of portal flow is hepatopetal. There is no demonstrated mass lesion. Gallbladder: Normal distended gallbladder. The gallbladder wall measures 1.6 mm. There is a negative sonographic Schmidt''s sign. There is no pericholecystic fluid. There are no gallstones. Common Bile Duct (C.B.D.): The common bile duct measures 4.5 mm. Pancreas: Normal size of the head, body of the pancreas. The tail portion is obscured due to overlying bowel gas. There is normal echogenicity of the pancreas. There is no demonstrated pancreatic mass or cyst. Right Kidney: Normal size of the right kidney. The right kidney measures 11.1 cm x 6.6 cm x 6.1 cm. Normal renal cortex. The right cortex measures 2 cm. There is no demonstrated renal mass or cyst. There is no right hydronephrosis. US/Abdomen Limited IMPRESSION: Mild degree of fatty infiltration of the liver. Electronically Signed: Renan Warner MD at 12:42 EDT ,
--- NOTE | 2022-04-03 11:07 | US_ITS ---
STUDY: ABDOMINAL ULTRASOUND - ELASTOGRAPHY REASON FOR VISIT: Male, 31 years old. SOTELO TECHNIQUE: Liver stiffness measurements were obtained on a [employer] RS 85 ultrasound machine using a CA 1-7 probe following the SRU guidelines. 3 measurements were obtained using a 2-D-SWE method. The IQR/M was 15% suggesting a quality data set. TECHNICAL QUALITY: Adequate. COMPARISON: Comparison is made with prior ultrasound done earlier today. FINDINGS: Liver: Mild degree of fatty infiltration of the liver. Median liver stiffness measured 5.5 kPa. US/Elastography Parenchyma/Organ IMPRESSION: Liver stiffness measures 5.5 kPa compatible with F0-F1 (Normal to mild liver fibrosis) Metavir score. Electronically Signed: Renan Warner MD at 12:44 EDT ,
== END | disposition home or self-care (01) ==
LOC: US 11:05
PROVIDERS: PCP Internal Medicine; Visit Provider Nurse Practitioner Adult Health
DX: K75.81 Nonalcoholic steatohepatitis (NASH) (principal)
CPT/HCPCS: 76705; 76981

== ENCOUNTER → 2022-09-10 | Outpatient (CLI) | payer OTHER, SELFPAY ==
--- NOTE | 2022-09-10 16:55 | RAD_ITS ---
STUDY: X-RAY - LUMBAR SPINE REASON FOR EXAM: Male, 32 years old. CHRONIC BACK PAIN TECHNIQUE: 3 view(s) of the lumbar spine were obtained. COMPARISON: 04/04/2020 FINDINGS: Normal lumbar lordosis. There is no substantial scoliosis. There is a normal alignment of the vertebrae. Normal vertebral bodies and endplates. Normal disc space heights. The soft tissue structures are unremarkable. No significant change since prior exam RAD/Lumbar Spine 2 or 3 Views IMPRESSION: Normal x-ray examination of the lumbar spine. Electronically Signed: Ken Nolasco MD at 17:13 EST ,
== END | disposition home or self-care (01) ==
LOC: RAD 16:42
PROVIDERS: PCP Internal Medicine; Referring Provider Nurse Practitioner Family; Visit Provider Nurse Practitioner Family
DX: M54.9 Dorsalgia, unspecified (principal); G89.29 Other chronic pain
CPT/HCPCS: 72100

== ENCOUNTER 2022-11-04 16:00 | Outpatient (RCR) | payer OTHER, SELFPAY ==
--- NOTE | 2022-09-18 16:40 | HP.PTEVAL ---
Patient's Visit Information JEN GREENBERG is a 32 year old M referred to Physical Therapy by Onofre Coppola NP-C with a diagnosis of Lumbar radiculopathy. Date of Evaluation: 09/18/22 Physical Therapist: AURELIA LevineT, OCS, CSCS - Visit Plan Frequency: 2x /Week Duration: 4-6 Weeks Plan: 2x/week for 4-6 weeks for... 1. Ext bias Elo based LB ROM and progression of forces to mobs PA if needed. Eventual remodelling flexion when painfree. rollout and teach stretches of quads and HS. 2. DLS ex to HEP, postural focus. Lifting technique training. 3. TENS if need with ice. - Subjective My back has been hurting for a long time for months insidously. Used to lift pretty heavy. Sitting long time makes it shoot.Constant lately and has had pain for a while. Sleep is not comfortable, has to get up and stretch. Dressing is painful to put shoes on. 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 Hard to stand after sitting. riding in car is the worst. Hobbies include: Working out lifting, modifying from heavy deadlifting and squatting. Stiff and sore in the am. - Pain LBP Pain Intensity (Out of 10): 0 Pain Intensity Range: 0, 6 Comment: worse sitting , better moving. - Objective Walks I and trasnfers I into PT bed and chair. Tender in PA pressure Lumbar and upper gluts. LB AROM extension painful and mod limited. flexion is painful and min limited, SB are min limited. reflexes 2/3 in patella and achilles. Sensation LE WNL to ross light touch. Strength LE WNL at 4+/5 and no pain or myotomal problems. quad and HS max tight at -60 90/90 test. + slump and SLR on R. repeated motion EIL increase motion quickly and decreases from 3/10 to 2/10 - Balance/Special Test Scores Oswestry Low Back Score: 16 - Goals Goal 1:: Full LB AROM without pain and painfree at rest Goal Time Frame: 4-6 Weeks Goal 2:: Pt sit 30 minutes without pain in vehicle Goal Time Frame: 4-6 Weeks Goal 3:: Patient feel pain 1/10 at worst adn 90% better Goal Time Frame: 4-6 Weeks Goal 4:: oswestry score 4 or better Goal Time Frame: 4-6 Weeks Goal 5:: Sleep without interruption Goal Time Frame: 4-6 Weeks - Rehabilitation Potential Physical Therapy Diagnosis: Likely discal pathology casuing LBP and limited function. Rehabilitation Potential: Good - Anticipated Interventions Patient/Client Instruction: Educate patient on: Condition, Plan of Care For the Purpose of:: To decrease pain, To increase ROM, To improve muscle performance and motor function, To increase tolerance to activity/condition/position Therapeutic Exercise to Include: Strength training, Postural training, Flexibilty training, Passive ROM, Active ROM For the Purpose of:: To decrease pain, To increase ROM, To improve nutrient delivery to tissue Manual Therapy Techniques to Include: Mobilization, Passive ROM, Soft tissue mobilization For the Purpose of:: To increase ROM TENS: Yes Cryotherapy (ice pack, ice massage): Yes For the Purpose of:: To decrease pain, To decrease swelling/inflammation, To increase ROM, To improve muscle performance and motor function Thank you for the opportunity to evaluate your patient. For Medicare and Medicare HMO plans, please review the plan of care and approve it. It will need to be FAXED BACK to us at [phone] for Medicare purposes. For Medicare only, by signing this I certify the plan of care. Please let me know if there are questions or concerns regarding this plan of care. Physician Signature: Date:
--- NOTE | 2022-10-16 16:54 | HP.PTREVAL ---
Onofre Coppola, [employer]ER-C, It has been my pleasure to treat JEN GREENBERG over the last 7 visits for Lumbar radiculopathy. Please see the progress note below for an update on the physical therapy plan of care! Subjective: Doesn't hurt as bad. Pain in last week to 5/10 with sitting too long.30% better. Not sleeping well so far. Back Aches at night. Doing PPU and back bends throughout day. 2x10 at times. Stretching HS adn using towel roll when sitting. Objective/Function: Much better oswestry, still low though. Lumbar extension still extremely limited in extension and painful, flexion mod limtied, SB are oK. Much better extension after PA mobs but not great. Walks stiff and transfers stiff but I. Plan Plan: 2x/week to continue POC for 5 visits... new treatments. PA mobs to lumbar and thoracic spine and teach gym exercises for core , DLS and LE strength to progress to I at [facility] as tolerated. May do updog and down dog and merlene pose to stretch. Ensure upright posture and extension improving. May prop in extension for TENS after session if needed. Pt may contact doctor regarding next step after therapy for pain(MRI, ortho, etc.) Balance/Gait/Functional tests - Balance/Special Test Scores Oswestry Low Back Score: 17 Goals Goal 1:: Full LB AROM without pain and painfree at rest Goal Time Frame: 4-6 Weeks Goal Progress: Not Progressing Goal 2:: Pt sit 30 minutes without pain in vehicle Goal Time Frame: 4-6 Weeks Goal Progress: Progressing Goal 3:: Patient feel pain 1/10 at worst adn 90% better Goal Time Frame: 4-6 Weeks Goal Progress: 30% Goal 4:: oswestry score 4 or better Goal Time Frame: 4-6 Weeks Goal 5:: Sleep without interruption Goal Time Frame: 4-6 Weeks Goal Progress: Not Progressing Anticipated Interventions Patient/Client Instruction: Educate patient on: Condition, Plan of Care For the Purpose of:: To decrease pain, To increase ROM, To improve muscle performance and motor function, To increase tolerance to activity/condition/position Therapeutic Exercise to Include: Strength training, Postural training, Flexibilty training, Passive ROM, Active ROM For the Purpose of:: To decrease pain, To increase ROM, To improve nutrient delivery to tissue Manual Therapy Techniques to Include: Mobilization, Passive ROM, Soft tissue mobilization For the Purpose of:: To increase ROM TENS: Yes Cryotherapy (ice pack, ice massage): Yes For the Purpose of:: To decrease pain, To decrease swelling/inflammation, To increase ROM, To improve muscle performance and motor function Please do not hesitate to contact me at [phone] by phone or if you have questions or concerns regarding this new plan of care! Sincerely, Lalo Eaton, DPT, OCS, CSCS
--- NOTE | 2022-11-04 16:55 | HP.PTREVAL_ITS ---
Onofre Coppola, BREAD OVEN OPERATOR-C, It has been my pleasure to treat JEN GREENBERG over the last 10 visits for Lumbar radiculopathy. Please see the progress note below for an update on the physical therapy plan of care! Subjective: A little better. Pain less often and severe. still real tight. Lifting has really helped. Will continue to get a membership here adn continue. Work is normal. Avoids lifting. Objective/Function: LB ROM. extension mod limited and no pain. Walking well without discomfort and progressing nicely toward goals. Plan Plan: Gave list of gym ex and will join and continue on his own adding knee flexion and extension. F/U in 3 weeks to ensure they are going well and possiblky add back ext and ab machine. Then d/c Balance/Gait/Functional tests - Balance/Special Test Scores Oswestry Low Back Score: 11 Goals Goal 1:: Full LB AROM without pain and painfree at rest Goal Time Frame: 4-6 Weeks Goal Progress: Progressing Goal 2:: Pt sit 30 minutes without pain in vehicle Goal Time Frame: 4-6 Weeks Goal Progress: Goal Met, with roll Goal 3:: Patient feel pain 1/10 at worst adn 90% better Goal Time Frame: 4-6 Weeks Goal Progress: 40% Goal 4:: oswestry score 4 or better Goal Time Frame: 4-6 Weeks Goal Progress: Progressing Goal 5:: Sleep without interruption Goal Time Frame: 4-6 Weeks Goal Progress: ??? Goal 6:: I in doing gym ex compliance and improving pain Goal Time Frame: 2-4 Weeks Goal Progress: NEW GOAL Anticipated Interventions Patient/Client Instruction: Educate patient on: Condition, Plan of Care For the Purpose of:: To decrease pain, To increase ROM, To improve muscle performance and motor function, To increase tolerance to activity/condition/position Therapeutic Exercise to Include: Strength training, Postural training, Flexibilty training, Passive ROM, Active ROM For the Purpose of:: To decrease pain, To increase ROM, To improve nutrient delivery to tissue Manual Therapy Techniques to Include: Mobilization, Passive ROM, Soft tissue mobilization For the Purpose of:: To increase ROM TENS: Yes Cryotherapy (ice pack, ice massage): Yes For the Purpose of:: To decrease pain, To decrease swelling/inflammation, To increase ROM, To improve muscle performance and motor function Please do not hesitate to contact me at [phone] by phone or if you have questions or concerns regarding this new plan of care! Sincerely, Lalo Eaton, DPT, OCS, CSCS
--- NOTE | 2023-01-13 10:28 | HP.PT.NRP ---
JEN GREENBERG was seen in my office for initial evaluation on 09/18/22. The following Plan of Care was established for this patient: Initial Frequency: 2x /Week Initial Duration: 4-6 Weeks Patient/Client Instruction: Educate patient on: Condition, Plan of Care For the Purpose of:: To decrease pain, To increase ROM, To improve muscle performance and motor function, To increase tolerance to activity/condition/position Therapeutic Exercise to Include: Strength training, Postural training, Flexibilty training, Passive ROM, Active ROM For the Purpose of:: To decrease pain, To increase ROM, To improve nutrient delivery to tissue Manual Therapy Techniques to Include: Mobilization, Passive ROM, Soft tissue mobilization For the Purpose of:: To increase ROM TENS: Yes Cryotherapy (ice pack, ice massage): Yes For the Purpose of:: To decrease pain, To decrease swelling/inflammation, To increase ROM, To improve muscle performance and motor function This patient was last seen in our office 11/04/22. Pertinent comments regarding their Physical therapy will appear below: Pt seen 10 visits and was 40% better and I with initial exercises. He was to continue with exercises and f/u three weeks later for additions but did not schedule or attend. At this point, it has been over 2 months and I will discontinue due to nonattendance. At this point I will be discontinuing this patient from physical therapy. I would be happy to see this patient again in the future if found appropriate by the physician. Thank you! Lalo Eaton, DPT, OCS, CSCS Balance/Gait/Functional tests - Balance/Special Test Scores Oswestry Low Back Score: 11
== END 2022-11-04 19:00 | disposition home or self-care (01) ==
LOC: PT 16:00
PROVIDERS: PCP Internal Medicine; Referring Provider Nurse Practitioner Family; Visit Provider Nurse Practitioner Family
DX: M54.16 Radiculopathy, lumbar region (principal); G89.29 Other chronic pain; M62.838 Other muscle spasm
CPT/HCPCS: 97110; 97140; 97161; 97530

== ENCOUNTER 2023-02-09 15:11 | Emergency (ER) | payer OTHER, SELFPAY ==
[2023-02-09 15:11] VITALS: BP 157/93; PULSE 86; RESP 16; TEMP 36.6; O2SAT 98; BMI 32.9
--- NOTE | 2023-02-09 15:43 | ED.RN ---
CALLED PCP AND TO F/U WITH THEM. LEFT WITHOUT BEING SEEN
== END 2023-02-09 15:58 | disposition left against medical advice (07) ==
LOC: ED 15:58
PROVIDERS: PCP Internal Medicine
DX: Z53.21 Procedure and treatment not carried out due to patient leaving prior to being seen by health care provider (principal)

== ENCOUNTER → 2023-03-18 | Outpatient (CLI) | payer OTHER, SELFPAY | END | disposition home or self-care (01) | LOC: SL 12:13 | PROVIDERS: PCP Internal Medicine; Visit Provider Family Medicine | DX: Z00.00 Encounter for general adult medical examination without abnormal findings (principal) ==

== ENCOUNTER → 2024-03-30 | Outpatient (CLI) | payer OTHER, SELFPAY ==
[2024-03-30 16:45] LABS: Absolute Lymphocyte Count 1.44 X10^3/uL (0.83-4.51); Basophil# 0.03 X10^3/uL; Basophil% 0.4 % (0-1); Eosinophil# 0.07 X10^3/uL; Eosinophils% 0.9 % (0-5); Hematocrit 45.1 % (40-54); Hemoglobin 15.2 g/dL (13.0-16.5); Lymphocyte # 1.44 X10^3/ul (0.83-4.51); Lymphocyte % 18.1 % (19-41); Mean Corp Hgb Conc 33.7 g/dL (32-36); Mean Corpuscular Hgb 29.7 pg (27.0-32.0); Mean Corpuscular Volume 88.3 fL (80-94); Mean Platelet Vol. 10.2 fl (6.2-12.0); Monocyte# 0.39 X10^3/uL; Monocyte% 4.9 % (0-10); NRBC Flagged by Analyzer 0 % (0-5); Neutrophil # 5.99 X10^3/uL (2.7-7.7); Neutrophil % 75.4 % (47-70); Platelet Count 247 K/mm3 (150-450); RBC Distribution Width CV 13.4 % (11.6-14.6); RBC Distribution Width SD 43.5 fl (35.1-43.9); Red Blood Count 5.11 M/mm3 (4.6-6.2); White Blood Count 7.9 K/mm3 (4.4-11.0)
[2024-03-30 17:15] LABS: ALB/GLOB Ratio 1.3 RATIO (0.9-2.4); AST(SGOT) 20 U/L (15-37); Alanine Aminotransfer ALT/SGPT 28 U/L (16-61); Albumin, Serum 4.3 g/dL (3.2-5.0); Alkaline Phosphatase 60 U/L (45-117); Anion Gap 8 (5-15); BUN 12 mg/dL (7-18); BUN/Creat Ratio 9.4 RATIO (10-20); Calcium,Total 9.6 mg/dL (8.5-10.1); Chloride 102 mmol/L (98-107); Cholesterol 187 mg/dL (200); Creatinine, Serum 1.28 mg/dL (0.70-1.30); EST Glomerular Filtration Rate 69 mL/min (>60); Est Glom Filt Rate - Afr Amer 83 mL/min (>60); Globulin 3.3 g/dL (2.2-4.2); Glucose 90 mg/dL (74-106); High Density Lipoprotein 46 mg/dL; Potassium 3.6 mmol/L (3.5-5.1); Protein, Total 7.6 g/dL (6.4-8.2); Sodium Level 138 mmol/L (136-145); Thyroid Stim Hormone (TSH) 1.19 uIU/mL (0.358-3.74); Triglycerides 160 mg/dL; Very Low Density Lipoprotein 32 mg/dL (5-40)
== END | disposition home or self-care (01) ==
LOC: VSLAB 15:45
PROVIDERS: Visit Provider Nurse Practitioner Family
DX: Z00.00 Encounter for general adult medical examination without abnormal findings (principal)
CPT/HCPCS: 36415; 80053; 80061; 84443; 85025

== ENCOUNTER → 2025-02-07 | Outpatient (CLI) | payer OTHER, SELFPAY ==
--- NOTE | 2025-02-07 10:36 | RAD_ITS ---
PROCEDURE: LUMBAR SPINE 2 OR 3 VIEWS 02/07/2025 REASON FOR EXAM: LOW BACK PAIN TECHNIQUE: 2 view(s) of the lumbar spine COMPARISON: 09/10/2022 FINDINGS: 5 [id number] lumbar vertebral body types identified. No fracture or malalignment. The disc spaces and endplates appear unchanged. RAD/Lumbar Spine 2 or 3 Views IMPRESSION: Study appears within limits without significant interval change. Reading Location: [id number]
--- NOTE | 2025-02-07 10:36 | RAD_ITS ---
PROCEDURE: CERV SPINE 2 OR 3 VIEWS 02/07/2025 REASON FOR EXAM: CERVICALGIA TECHNIQUE: 3 views of the cervical spine. COMPARISON: None available FINDINGS: Cervical spine is visualized on the lateral view from the skull base to the top of T1. Straightening may represent positioning or spasm. No prevertebral soft tissue swelling. No fracture or malalignment. C6-7 moderate disc space narrowing. RAD/Cerv Spine 2 or 3 Views IMPRESSION: Straightening may represent positioning or spasm. C6-7 moderate disc space narrowing. Reading Location: [id number]
== END | disposition home or self-care (01) ==
LOC: MTRAD 10:34
PROVIDERS: PCP Nurse Practitioner Family; Referring Provider Family Medicine; Visit Provider Family Medicine
DX: M54.50 Low back pain, unspecified (principal); M54.2 Cervicalgia
CPT/HCPCS: 72040; 72100

== ENCOUNTER → 2025-02-15 | Outpatient (CLI) | payer OTHER, SELFPAY ==
[2025-02-15 16:49] LABS: Absolute Lymphocyte Count 1.46 X10^3/uL (0.83-4.51); Absolute Neutrophil Count 5.6 X10^3/uL (2.0-7.7); Basophil# 0.03 X10^3/uL; Basophil% 0.4 % (0-1); Eosinophil# 0.21 X10^3/uL; Eosinophils% 2.7 % (0-5); Lymphocyte # 1.46 X10^3/ul (0.83-4.51); Lymphocyte % 18.6 % (19-41); Mean Corp Hgb Conc 33.3 g/dL (32-36); Mean Corpuscular Hgb 28.6 pg (27.0-32.0); Mean Corpuscular Volume 85.7 fL (80-94); Mean Platelet Vol. 9.9 fl (6.2-12.0); Monocyte# 0.56 X10^3/uL; Monocyte% 7.1 % (0-10); NRBC Flagged by Analyzer 0 % (0-5); Neutrophil # 5.58 X10^3/uL (2.7-7.7); Neutrophil % 70.9 % (47-70); Platelet Count 251 K/mm3 (150-450); RBC Distribution Width CV 12.4 % (11.6-14.6); RBC Distribution Width SD 38.8 fl (35.1-43.9); Red Blood Count 5.25 M/mm3 (4.6-6.2); White Blood Count 7.9 K/mm3 (4.4-11.0)
[2025-02-15 18:14] LABS: ALB/GLOB Ratio 1.4 RATIO (0.9-2.4); AST(SGOT) 23 U/L (<=37); Alanine Aminotransfer ALT/SGPT 18 U/L (<=46); Albumin, Serum 4.5 g/dL (3.5-5.0); Alkaline Phosphatase 71 U/L (40-129); Anion Gap 13 (5-15); BUN 15 mg/dL (4-19); BUN/Creat Ratio 13.1 RATIO (10-20); Calcium,Total 9.4 mg/dL (7.6-11.0); Chloride 102 mmol/L (98-108); Cholesterol 166 mg/dL (<=200); Creatinine, Serum 1.15 mg/dL (0.70-1.20); EST Glomerular Filtration Rate 86 (>60); Globulin 3.1 g/dL (2.2-4.2); Glucose 82 mg/dL (70-99); High Density Lipoprotein 28 mg/dL; Low Density Lipoprotein Calc. 105 mg/dL; Protein, Total 7.7 g/dL (5.9-8.4); Sodium Level 139 mmol/L (133-145); Thyroid Stim Hormone (TSH) 0.956 uIU/mL (0.300-4.200); Total Bilirubin 0.68 mg/dL (0.00-1.30); Triglycerides 165 mg/dL; Very Low Density Lipoprotein 33 mg/dL (5-40); Vitamin B12 512 pg/mL (180-914); Vitamin D,25 Hydroxy 31.6 ng/mL (30-100); cholesterol:hdl ratio screen 5.95
[2025-02-15 19:10] LABS: Hemoglobin A1c 5.8 % (<=5.6)
== END | disposition home or self-care (01) ==
LOC: VSLAB 14:01
PROVIDERS: PCP Nurse Practitioner Family; Visit Provider Nurse Practitioner Family
DX: Z00.00 Encounter for general adult medical examination without abnormal findings (principal); E56.9 Vitamin deficiency, unspecified
CPT/HCPCS: 36415; 80053; 80061; 82306; 82607; 83036; 84443; 85025